=== PATIENT | male | born 1985 | race Asian ===

== ENCOUNTER 2016-06-16 11:46 | Emergency (ER) | payer MEDICAID ==
[2016-06-16] MEDS ORDERED: ONDANSETRON 4 MG/2 ML VIAL IVP STA (12:20)
[2016-06-16] MEDS ORDERED: KETOROLAC 60 MG/2 ML VIAL IVP STA (12:20)
[2016-06-16] MEDS ORDERED: SODIUM CHLORIDE 0.9% 1,000 ML IV ONE ×2 (12:20→14:08)
[2016-06-16] MEDS ORDERED: KETOROLAC 30 MG/ML VIAL ONE (12:26)
[2016-06-16] MEDS ORDERED: ONDANSETRON 4 MG/2 ML VIAL ONE (12:26)
[2016-06-16] MEDS ORDERED: HYDROmorphone 1 MG/ML SYRINGE IVP STA ×2 (12:47→14:06)
[2016-06-16] MEDS ORDERED: HYDROmorphone 1 MG/ML SYRINGE ONE ×2 (12:48→14:11)
== END 2016-06-16 15:17 | disposition home or self-care (01) ==
DX: N13.2 Hydronephrosis with renal and ureteral calculous obstruction (principal); Z87.442 Personal history of urinary calculi; K57.30 Diverticulosis of large intestine without perforation or abscess without bleeding; K76.0 Fatty (change of) liver, not elsewhere classified; I10 Essential (primary) hypertension; E78.00 Pure hypercholesterolemia, unspecified; F17.200 Nicotine dependence, unspecified, uncomplicated
CPT/HCPCS: 36415; 74176; 80053; 81001; 83690; 85025; 96361; 96374; 96375; 96376; 99284; 99285; J1170

== ENCOUNTER 2018-05-14 14:11 | Emergency (ER) | payer MEDICAID ==
[2018-05-14 14:39] LABS: BILIRUBIN,URINE NEGATIVE (NEGATIVE); GLUCOSE, URINE (UA) NEGATIVE (NEGATIVE); KETONES,URINE (UA) NEGATIVE (NEGATIVE); LEUKOCYTE ESTERASE, URINE NEGATIVE (NEGATIVE); NITRITE,URINE NEGATIVE (NEGATIVE); OCCULT BLOOD,URINE TRACE-INTA (NEGATIVE); PROTEIN,URINE 30 mg/dL (NEGATIVE); UROBILINOGEN,URINE 0.2 (NORMAL) E.U./dL (NORMAL)
[2018-05-14 14:47] LABS: BACTERIA,URINE None Seen /HPF (None Seen); CLARITY,URINE CLEAR (CLEAR); RBC,URINE 0-5 /HPF (0-5); SQUAMOUS EPITHELIAL CELL,UR RARE Squamous (<= Few)
[2018-05-14 14:48] LABS: MUCUS,URINE Few Strands
[2018-05-14 15:10] LABS: BASOPHILS # (AUTO) 0.1 10^3/uL (0.0-0.1); BASOPHILS % (AUTO) 0.6 %; EOSINOPHILS # (AUTO) 0.1 10^3/uL (0.0-0.7); EOSINOPHILS % (AUTO) 0.5 %; LYMPHOCYTES % (AUTO) 6.3 %; MEAN CORPUSCULAR HEMOGLOBIN 27.8 pg (27.0-31.0); MEAN CORPUSCULAR HGB CONC 34.6 g/dL (32.0-36.0); MEAN CORPUSCULAR VOLUME 80.2 fL (80.0-94.0); MEAN PLATELET VOLUME 7.2 fL (7.4-11.4); MONOCYTES # (AUTO) 0.9 10^3/uL (0.0-1.0); MONOCYTES % (AUTO) 5.6 %; NEUTROPHILS # (AUTO) 14.4 10^3/uL (1.5-6.6); PLT - PLATELET COUNT 278 10^3/uL (130-450); RED BLOOD COUNT 5.77 10^6/uL (4.70-6.10); RED CELL DISTRIBUTION WIDTH 14.1 % (12.0-15.0); WHITE BLOOD COUNT 16.5 x10^3/uL (4.8-10.8)
[2018-05-14 15:21] LABS: ALBUMIN 4.6 g/dL (3.2-5.5); ALBUMIN/GLOBULIN RATIO 1.2 (1.0-2.2); BILIRUBIN,TOTAL 0.7 mg/dL (0.2-1.0); CALCIUM 9.7 mg/dL (8.5-10.3); CREATININE 1.2 mg/dL (0.6-1.2); TOTAL PROTEIN 8.4 g/dL (6.7-8.2)
[2018-05-14] MEDS ORDERED: KETOROLAC 30 MG/ML VIAL IVP STA (15:32)
[2018-05-14] MEDS ORDERED: HYDROmorphone 1 MG/ML CARPUJECT IVP STA ×2 (15:32→16:38)
[2018-05-14] MEDS ORDERED: ONDANSETRON 4 MG/2 ML VIAL IVP STA (15:32)
--- NOTE | 2018-05-14 15:47 | ED Physician Documentation ---
PD HPI ABD PAIN - Stated complaint Stated Complaint: SIDE PX - Chief complaint Chief Complaint: Abd Pain - History obtained from History obtained from: Patient - History of Present Illness Timing - onset: Other (3 days increasing L low back pain rad to belly similar to prior renal colic. Has had ESWL x2 and last stone passed on it's own.) Review of Systems Ten Systems: 10 systems reviewed and negative Constitutional: denies: Fever, Chills Cardiac: denies: Chest pain / pressure, Palpitations Respiratory: denies: Dyspnea, Cough GI: reports: Abdominal Pain, Nausea, Vomiting. denies: Constipation, Diarrhea : reports: Hematuria PD PAST MEDICAL HISTORY - Past Medical History Cardiovascular: Hypertension, High cholesterol Respiratory: None Endocrine/Autoimmune: None GI: None : None, Kidney stones HEENT: None Psych: None Musculoskeletal: None Derm: None - Past Surgical History Past Surgical History: No - Present Medications Home Medications: Ambulatory Orders Medication Instructions Recorded Confirmed Ibuprofen [Motrin] 800 mg PO Q8H PRN #30 tablet 05/14/18 Oxycodone HCl/Acetaminophen 1 - 2 each PO Q6H PRN #20 tablet 05/14/18 [Percocet 5-325 mg Tablet] Tamsulosin [Flomax] 0.4 mg PO DAILY #14 capsule 05/14/18 - Allergies Allergies/Adverse Reactions: Allergies Allergy/AdvReac Type Severity Reaction Status Date / Time No Known Drug Allergies Allergy Verified 05/14/18 14:15 - Social History Does the pt smoke?: Yes Smoking Status: Current every day smoker Does the pt drink ETOH?: No Does the pt have substance abuse?: No - Immunizations Immunizations are current?: No Immunizations: No immun - POLST Patient has POLST: No PD ED PE NORMAL - Vitals Vital signs reviewed: Yes (HTN) - General General: Alert and oriented X 3, Other (pacing uncomfortable) - HEENT HEENT: PERRL, EOMI - Neck Neck: Supple, no meningeal sign, No bony TTP - Cardiac Cardiac: RRR, No murmur - Respiratory Respiratory: No respiratory distress, Clear bilaterally - Abdomen Abdomen: Normal bowel sounds, Soft, Non tender - Back Back: No CVA TTP, No spinal TTP - Derm Derm: Normal color, Warm and dry - Neuro Neuro: Alert and oriented X 3, Normal speech - Psych Psych: Normal mood, Normal affect Results - Vitals Vitals: Vital Signs - 24 hr 05/14/18 05/14/18 14:13 16:06 Temperature 36 C L 36.5 C Heart Rate 73 72 Respiratory 22 16 Rate Blood Pressure 205/117 H 165/98 H O2 Saturation 99 98 Oxygen O2 Source Room air - Labs Labs: Laboratory Tests 05/14/18 05/14/18 05/14/18 14:20 15:00 15:00 WBC 16.5 H RBC 5.77 Hgb 16.0 Hct 46.3 MCV 80.2 MCH 27.8 MCHC 34.6 RDW 14.1 Plt Count 278 MPV 7.2 L Neut # (Auto) 14.4 H Lymph # (Auto) 1.0 L [place] # (Auto) 0.9 Eos # (Auto) 0.1 Baso # (Auto) 0.1 Absolute Nucleated RBC 0.01 Nucleated RBC % 0.1 Sodium 138 Potassium 3.7 Chloride 105 Carbon Dioxide 23 Anion Gap 10.0 BUN 15 Creatinine 1.2 Estimated GFR (MDRD) 70 L Glucose 132 H Calcium 9.7 Total Bilirubin 0.7 AST 30 ALT 27 Alkaline Phosphatase 72 Total Protein 8.4 H Albumin 4.6 Globulin 3.8 Albumin/Globulin Ratio 1.2 Lipase 87 H Urine Color YELLOW Urine Clarity CLEAR Urine pH 7.0 Ur Specific [place] 1.020 Urine Protein 30 H Urine Glucose (UA) NEGATIVE Urine Ketones NEGATIVE Urine Occult Blood TRACE-INTA Urine Nitrite NEGATIVE Urine Bilirubin NEGATIVE Urine Urobilinogen 0.2 (NORMAL) Ur Leukocyte Esterase NEGATIVE Urine RBC 0-5 Urine WBC 0-3 Ur Squamous Epith Cells RARE Squamous Urine Bacteria None Seen Urine Mucus Few Strands Ur Microscopic Review INDICATED Urine Culture Comments NOT INDICATED PD MEDICAL DECISION MAKING - ED course ED course: 32-year-old gentleman with recurrent renal colic. Pain improved to 0 stepwise with medications and felt better. We discussed his CT, but given the clear diagnosis and improvement with pain meds He decided to forego it with hopes that it will pass on its own. Departure - Departure Disposition: 01 Home, Self Care Clinical Impression: Renal colic Condition: Good Record reviewed to determine appropriate education?: Yes Instructions: ED Stone Renal W Colic Prescriptions: Ibuprofen [Motrin] 800 mg PO Q8H PRN #30 tablet PRN Reason: PAIN &/OR FEVER Oxycodone HCl/Acetaminophen [Percocet 5-325 mg Tablet] 1 - 2 each PO Q6H PRN #20 tablet PRN Reason: pain Tamsulosin [Flomax] 0.4 mg PO DAILY #14 capsule Comments: Call your doctor to arrange a follow-up appointment, make the next available appointment. In the interim, return anytime if worse or if new symptoms develop. Do not drink or drive while taking narcotic pain medication. Note that many narcotic pain relievers also contain Tylenol/acetaminophen. Please ensure that your total dose of acetaminophen from all sources does not exceed 3 g (3000 mg) per day. You may get constipated while on this medication. Take a stool softener such as Colace twice a day while you are on it. Also add an uhbx-hlu-rzcchzm laxative such as senna or MiraLAX on any day that you do not have a bowel movement. If you received a narcotic pain medication or sedative while in the emergency department, do not drive for the next 24 hours. Your blood pressure was elevated today on check into the emergency department. This does not mean that you have hypertension, it is a common phenomenon to come to the emergency department and have elevated blood pressure. I recommend that you see your primary care physician within the week to have it rechecked when you are feeling better.
[2018-05-14 16:07] VITALS: BP 165/98
[2018-05-14] MEDS ORDERED: SODIUM CHLORIDE 0.9% 1,000 ML IV ONE (16:29)
== END 2018-05-14 18:12 | disposition home or self-care (01) ==
LOC: ED 14:11
DX: N23 Unspecified renal colic (principal); I10 Essential (primary) hypertension; E78.00 Pure hypercholesterolemia, unspecified; F17.200 Nicotine dependence, unspecified, uncomplicated
CPT/HCPCS: 36415; 80053; 81001; 83690; 85025; 96361; 96374; 96375; 99283; J1170; 81003; 87086

== ENCOUNTER 2022-05-02 17:42 | Emergency (ER) | payer MEDICAID ==
[2022-05-02] MEDS ORDERED: HYDROcod/ACETAM 5/325 MG TABLET PO STA (18:10)
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
--- NOTE | 2022-05-02 19:16 | XRAY Report ---
PROCEDURE: Chest 2 View X-Ray INDICATIONS: chest wall injury TECHNIQUE: 2 views of the chest were acquired. COMPARISON: None FINDINGS: Surgical changes and devices: None. Lungs and pleura: No pleural effusions or pneumothorax. Lungs are clear. Mediastinum: Mediastinal contours are normal. Heart size is normal. Bones and chest wall: No suspicious bony abnormalities. Soft tissues appear unremarkable. No eviden ce for acute compression fractures of the imaged spine. IMPRESSION: Chest without acute cardiopulmonary abnormalities or focal airspace disease. Reviewed by: Paolo Garcia MD on 05/02/2022 7:15 PM PST Approved by: Paolo Garcia MD on 05/02/2022 7:15 PM PST Station ID: [id number]
[2022-05-02 19:41] VITALS: BP 154/120
== END 2022-05-02 19:41 | disposition home or self-care (01) ==
LOC: ED 17:42
DX: S29.011A Strain of muscle and tendon of front wall of thorax, initial encounter (principal); V89.2XXA Person injured in unspecified motor-vehicle accident, traffic, initial encounter; Y93.89 Activity, other specified; Y92.410 Unspecified street and highway as the place of occurrence of the external cause; F17.200 Nicotine dependence, unspecified, uncomplicated
CPT/HCPCS: 71046; 99283; A9270

== ENCOUNTER 2022-05-04 05:24 | Emergency (ER) | payer MEDICAID ==
[2022-05-04] MEDS ORDERED: SODIUM CHLORIDE 0.9% 1,000 ML IV STA (05:40)
[2022-05-04] MEDS ORDERED: HYDROmorphone 1 MG/ML CARPUJECT IVP STA ×2 (05:46→07:15)
[2022-05-04] MEDS ORDERED: ONDANSETRON 4 MG/2 ML VIAL IVP STA (05:46)
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
[2022-05-04 05:49] LABS: BASOPHILS # (AUTO) 0.1 10^3/uL (0.0-0.1); BASOPHILS % (AUTO) 0.6 %; EOSINOPHILS # (AUTO) 0.2 10^3/uL (0.0-0.7); HCT - HEMATOCRIT 46.1 % (42.0-52.0); HGB - HEMOGLOBIN 14.1 g/dL (14.0-18.0); LYMPHOCYTES # (AUTO) 1.7 10^3/uL (1.5-3.5); LYMPHOCYTES % (AUTO) 15.2 %; MEAN CORPUSCULAR HEMOGLOBIN 24.4 pg (27.0-31.0); MEAN CORPUSCULAR HGB CONC 30.6 g/dL (32.0-36.0); MEAN CORPUSCULAR VOLUME 79.6 fL (80.0-94.0); MEAN PLATELET VOLUME 9.1 fL (7.4-11.4); MONOCYTES # (AUTO) 1.2 10^3/uL (0.0-1.0); MONOCYTES % (AUTO) 10.8 %; PLT - PLATELET COUNT 316 10^3/uL (130-450); RED BLOOD COUNT 5.79 10^6/uL (4.70-6.10); RED CELL DISTRIBUTION WIDTH 17.4 % (12.0-15.0); WHITE BLOOD COUNT 11.3 x10^3/uL (4.8-10.8)
[2022-05-04 05:54] LABS: ALBUMIN 3.4 g/dL (3.2-5.5); ALBUMIN/GLOBULIN RATIO 1.1 (1.0-2.2); BILIRUBIN,TOTAL 0.9 mg/dL (0.2-1.0); CALCIUM 8.8 mg/dL (8.5-10.3); CREATININE 2.5 mg/dL (0.6-1.2); POTASSIUM 4.2 mmol/L (3.5-5.0); TOTAL PROTEIN 6.6 g/dL (6.7-8.2)
[2022-05-04 06:03] LABS: BILIRUBIN,URINE NEGATIVE (NEGATIVE); GLUCOSE, URINE (UA) NEGATIVE (NEGATIVE); KETONES,URINE (UA) NEGATIVE (NEGATIVE); LEUKOCYTE ESTERASE, URINE NEGATIVE (NEGATIVE); NITRITE,URINE NEGATIVE (NEGATIVE); OCCULT BLOOD,URINE LARGE (NEGATIVE); PROTEIN,URINE 100 mg/dL (NEGATIVE); UROBILINOGEN,URINE 0.2 (NORMAL) E.U./dL (NORMAL)
[2022-05-04 06:12] LABS: CLARITY,URINE HAZY (CLEAR)
[2022-05-04 06:13] LABS: BACTERIA,URINE None Seen /HPF (None Seen); RBC,URINE TNTC /HPF (0-5); SQUAMOUS EPITHELIAL CELL,UR RARE Squamous (<= Few); WBC,URINE 0-3 /HPF (0-3)
[2022-05-04] MEDS ORDERED: TAMSULOSIN 0.4 MG CAPSULE PO STA (07:15)
[2022-05-04 08:11] VITALS: BP 192/150
--- NOTE | 2022-05-04 09:36 | CT Report ---
PROCEDURE: ABDOMEN/PELVIS WO INDICATIONS: right flank pain TECHNIQUE: Noncontrast 5 mm thick sections acquired from the diaphragms to the symphysis. 5 mm coronal and sagi ttal reformats were then performed. For radiation dose reduction, the following was used: automated exposure control, adjustment of mA and/or kV according to patient size. COMPARISON: 06/16/2016, 06/19/2014, 01/24/2014. Correlation is also made with chest radiograph, 3. FINDINGS: Image quality: This study is limited by body habitus. ABDOMEN: Lung bases: Within the left lower lobe, poorly defined opacity is seen, as on series 4 image 28. Hear t size is normal. A small hiatal hernia is incidentally noted. Solid organs: The previously seen fatty liver infiltration is no longer definitely seen. There is an enlarged caudate lobe of the liver. Gallbladder demonstrates no significant CT abnormality. Pancrea s is normal in contours. No adrenal nodules. Mild to moderate right-sided hydroureter and hydronephrosis can be seen. Mild right-sided perinephric fat stranding can be seen. At the left ureterovesicular junction, there are 2 stones seen. One is se en proximally on series 3 image 143 measuring approximately 2 mm. A second more distal stone is seen partially within the bladder lumen on series 3 image 145 measuring 3 mm. An irregular 6 mm stone can be seen within the right kidney that measures 150 Hounsfield units. No de finite left-sided stones are seen. No left-sided hydronephrosis. Peritoneum and bowel: Unenhanced bowel loops demonstrate normal wall thickness and caliber. No free fluid or air. Diverticulosis can be seen, without dee findings of active diverticulitis. Nodes and vessels: No retroperitoneal or mesenteric adenopathy by size criteria. Aorta and inferior vena cava are normal in caliber. Miscellaneous: No ventral hernias. Generalized body wall edema can be seen. PELVIS: Genitourinary: Bladder wall thickness is normal. Miscellaneous: No inguinal hernias or adenopathy. Bones: No suspicious bony lesions. No vertebral body compression fractures. Generalized premature degenerative changes are seen. IMPRESSION: 2 obstructing stones are seen near the right ureterovesicular junction, with the largest seen more di stally measuring 3 mm. Associated mild to moderate right-sided hydroureter and hydronephrosis can be seen. Nonobstructing right-sided kidney stone noted. Left lower lobe poorly defined consolidation can be seen. Mild infiltrate is suspected, although diff erential diagnosis includes atelectasis. In a patient of this age, neoplasm is unlikely. Please consi jada a follow-up chest CT in approximately 3 months to ensure clearing. Mild anasarca. Enlarged caudate lobe of the liver. Please consider cirrhosis. The previously seen fatty liver infilt ration is no longer definitely seen. Additional findings: Small hiatal hernia Diverticulosis, without findings of active diverticulitis. Note: No significant discrepancy from the preliminary report. Reviewed by: Kemar Alvarenga MD on 05/04/2022 8:35 AM [facility] Approved by: Kemar Alvarenga MD on 05/04/2022 8:35 AM [facility] Station ID: [id number]
== END 2022-05-04 08:11 | disposition home or self-care (01) ==
LOC: ED 05:24
DX: N13.2 Hydronephrosis with renal and ureteral calculous obstruction (principal); R93.2 Abnormal findings on diagnostic imaging of liver and biliary tract; F17.200 Nicotine dependence, unspecified, uncomplicated
CPT/HCPCS: 36415; 74176; 80053; 81001; 83690; 85025; 96374; 96376; 99284; A9270; J1170; 81003; 87086

== ENCOUNTER 2022-06-03 11:24 | Outpatient (CLI) | payer MEDICAID ==
[2022-06-03 11:54] LABS: BASOPHILS # (AUTO) 0.1 10^3/uL (0.0-0.1); EOSINOPHILS % (AUTO) 8.2 %; HCT - HEMATOCRIT 46.8 % (42.0-52.0); HGB - HEMOGLOBIN 14.1 g/dL (14.0-18.0); LYMPHOCYTES # (AUTO) 1.7 10^3/uL (1.5-3.5); LYMPHOCYTES % (AUTO) 14.3 %; MEAN CORPUSCULAR HGB CONC 30.1 g/dL (32.0-36.0); MEAN CORPUSCULAR VOLUME 79.7 fL (80.0-94.0); MEAN PLATELET VOLUME 8.4 fL (7.4-11.4); MONOCYTES # (AUTO) 0.9 10^3/uL (0.0-1.0); MONOCYTES % (AUTO) 7.6 %; NEUTROPHILS # (AUTO) 7.9 10^3/uL (1.5-6.6); NEUTROPHILS % (AUTO) 68.6 %; PLT - PLATELET COUNT 307 10^3/uL (130-450); RED BLOOD COUNT 5.87 10^6/uL (4.70-6.10); WHITE BLOOD COUNT 11.6 x10^3/uL (4.8-10.8)
[2022-06-03 12:02] LABS: ALBUMIN 3.7 g/dL (3.2-5.5); ALBUMIN/GLOBULIN RATIO 0.7 (1.0-2.2); BILIRUBIN,TOTAL 0.8 mg/dL (0.2-1.0); CALCIUM 9.4 mg/dL (8.5-10.3); CREATININE 2.2 mg/dL (0.6-1.2); POTASSIUM 4.2 mmol/L (3.5-5.0); TOTAL PROTEIN 8.8 g/dL (6.7-8.2); URIC ACID 11.8 mg/dL (2.6-7.2)
--- NOTE | 2022-06-03 15:46 | XRAY Report ---
PROCEDURE: Ankle 3 View BILAT INDICATIONS: ANKLE PAIN TECHNIQUE: 3 views of both ankles COMPARISON: None FINDINGS: Bones: No acute fracture or dislocation identified. No definite or substantial left ankle mortise asy mmetry. Probable medial talar tilt of the right ankle. Moderate-severe degenerative changes of the ti biotalar joint and imaged midfoot bilaterally. Prominent posterior calcaneal spurs present bilaterall y. Soft tissues: No tibiotalar joint effusion. IMPRESSION: No acute osseous abnormality. Probable medial talar tilt right ankle. Moderate-severe degenerative changes of the tibiotalar joint bilaterally. If symptoms persist, follow-up radiographs and/or CT or MRI may be helpful for further evaluation. Reviewed by: All Gillespie MD on 06/03/2022 3:45 PM [facility] Approved by: All Gillespie MD on 06/03/2022 3:45 PM [facility] Station ID: [id number]
== END 2022-06-03 11:25 | disposition home or self-care (01) ==
LOC: DI 11:24
PROVIDERS: ATTEND Physician Assistant
DX: M19.071 Primary osteoarthritis, right ankle and foot (principal); M19.072 Primary osteoarthritis, left ankle and foot; I11.0 Hypertensive heart disease with heart failure; I50.20 Unspecified systolic (congestive) heart failure; Z86.39 Personal history of other endocrine, nutritional and metabolic disease
CPT/HCPCS: 36415; 80053; 84550; 85025

== ENCOUNTER 2022-06-24 09:33 | Outpatient (CLI) | payer MEDICAID ==
[2022-06-24 10:13] LABS: ESTIMATED AVERAGE GLUCOSE 183 mg/dL (70-100)
== END 2022-06-24 09:34 | disposition home or self-care (01) ==
LOC: LAB 09:33
PROVIDERS: ATTEND Physician Assistant Surgical
DX: M14.60 Charcot's joint, unspecified site (principal)
CPT/HCPCS: 36415; 83036

== ENCOUNTER 2022-07-11 13:05 | Outpatient (CLI) | payer MEDICAID ==
--- NOTE | 2022-07-11 18:50 | CT Report ---
PROCEDURE: LOWER EXTREMITY WO - RT INDICATIONS: CHARCOTS ARTHROPATHY TECHNIQUE: Noncontrast 3-mm axial sections acquired from the distal tibial shaft to the talar dome, with coronal and sagittal reformats. For radiation dose reduction, the following was used: automated exposure c ontrol, adjustment of mA and/or kV according to patient size. COMPARISON: Ankle radiograph dated 06/03/2022. FINDINGS: Image quality: Excellent. Bones: Moderate osteoarthritic changes are noted throughout midfoot and hindfoot joints advanced for patient's age. Finding is most notably in subtalar joint, talonavicular joint and tibiotalar joint w ith significant joint space narrowing, subchondral sclerosis and marginal osteophyte formation. Likel y intraosseous hemangioma or lipoma is seen in weightbearing portion of calcaneus. Ill-defined hypode nse area involving midportion of talus is seen and may represent intraosseous hemangioma. No other woodson spicious bony lesion is noted. No acute fracture or dislocation. No significant osteoarthritic change s are noted in forefoot joints. Well-defined plantar and dorsal calcaneal enthesophytes are seen. Soft tissues: There is widening of the medial and lateral ankle mortise. Widening of distal tibiofib ular syndesmosis is also seen measures up to 4 mm in width. No significant tibiotalar or subtalar cosme nt effusion is seen, no gross intra-articular loose bodies are noted. Distal Achilles tendon is thick ened at its posterior calcaneal insertion suggestive of tendinosis. No Achilles tendon rupture. No fu ll-thickness extensor, flexor, and peroneus tendon ruptures. Visualized plantar fascia is within norm al limits. Impression: 1. Moderate midfoot and hindfoot joint osteoarthritic changes are advanced for patient's age concerni ng for posttraumatic changes versus sequela from neuropathic arthropathy. 2. No acute fracture or dislocation. Fairly well defined intraosseous hypodense lesions involving jatinder seth and central portion of talus and anterior to mid weightbearing portion of calcaneus and may repre sent intraosseous hemangioma or lipoma suggest clinical correlation and follow-up. 3. Widened distal tibiofibular syndesmosis concerning for distal syndesmotic injury. No significant joint effusion or intra-articular loose bodies. No abnormal soft tissue calcifications. No gross full -thickness ankle tendon rupture. Distal Achilles tendinosis at its posterior calcaneal insertion. No Achilles tendon rupture. Reviewed by: Josh Muñoz MD on 07/11/2022 5:49 PM [facility] Approved by: Josh Muñoz MD on 07/11/2022 5:49 PM [facility] Station ID: [id number]
== END 2022-07-11 13:06 | disposition home or self-care (01) ==
LOC: DI 13:05
PROVIDERS: ATTEND Physician Assistant Surgical
DX: M19.071 Primary osteoarthritis, right ankle and foot (principal); M14.60 Charcot's joint, unspecified site

== ENCOUNTER 2022-07-17 11:38 | Outpatient (CLI) | payer MEDICAID ==
[2022-07-17 12:01] LABS: CALCIUM 9.2 mg/dL (8.5-10.3); CREATININE 1.9 mg/dL (0.6-1.2); POTASSIUM 4.1 mmol/L (3.5-5.0)
== END 2022-07-17 11:39 | disposition home or self-care (01) ==
LOC: LAB 11:38
PROVIDERS: ATTEND Nurse Practitioner
DX: I10 Essential (primary) hypertension (principal)
CPT/HCPCS: 36415; 80048

== ENCOUNTER 2022-08-14 09:31 | Outpatient (CLI) | payer MEDICAID ==
[2022-08-14 10:12] VITALS: BP 156/102
--- NOTE | 2022-08-14 10:12 | SLEEP CARE CONSULTATION ---
Information from patient questionnaire entered by Dominique Ratliff. I have reviewed and concur with the information entered by Dominique Ratliff. This document represents the service I personally performed and the decisions made by me, Destinee Howard ARNP. History of Present Illness Service Date and Time: 08/14/2022930 Reason for Visit: New patient Chief Complaint: reports: Snoring, Observed pauses in breathing Date of Onset: no idea of time Usual bedtime: 1130 PM-MIDNIGHT Time it takes to fall asleep: 30-45 minutes Snores at night: Yes Observed to quit breathing while asleep: Yes Sleeps alone due to snoring: No Number of times waking at night: 1 Reasons for waking at night: reports: Bathroom. denies: Choking, Snoring, Gasping for air Toss, Turn, or Twitch while sleeping: Yes Recalls having dreams: No Usually gets out of bed at: 0830 Feels refreshed in the morning: Yes Morning headache: No Sleepy or fatigued during the day: No Ever fallen asleep while driving: Yes (once, Scott feel asleep at wheel, just prior to [place]) Takes day naps: No Dreams during day naps: No Prior sleep studies: No Additional HPI information: I had the pleasure of seeing KAMI FORBES today regarding the possibility of him having a sleep disorder. His current complaints are snoring and observed pauses in breathing. He states he had a heart attack and when he was in the hospital the doctor told him he may need a "breathing machine" at night. The doctor told him he was not getting enough air into his lungs and his oxygen level would drop when they were monitoring him. He continues to wear oxygen at night. He is not sure how many liters he is on. He states he used to stop breathing when he was much heavier. He states he lost weight but then put a lot back on before his heart attack. He has been told that he snores. 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 Patient is and lives in [place]. Have you smoked in the past 12 months: Yes Cigarettes per day (20/pack): 10 Years of smokin Quit date: Apr 2022 Smoking Pack Years: 5.0 Alcohol use: No Caffeine use: No Family History Family history of sleep disordered breathing: No Allergies and Home Medications Known drug allergies: No Drug allergies reviewed: Yes Home medication list reviewed: Yes (see updated list in EMR) Allergy and home medication list: Allergies No Known Drug Allergies Allergy (Verified 08/13/22 14:12) Review of Systems Weight loss over past 5 years: 75 lbs since heart attack (water weight) Cardiovascular: reports: high blood pressure, leg or foot swelling Gastrointestinal: denies: heartburn Neurological: denies: headaches, seizure Psychiatric: denies: anxiety, depression, mood disorder Ear/Nose/Throat: denies: tonsillectomy Endocrine: denies: thyroid disease Immunologic: reports: other (SWELLING IN ANKLES) Physical Exam Vital signs obtained and entered by: DOMINIQUE Oviedo MA Blood Pressure: 156/102 (LEFT ARM) Cuff size: long Heart Rate: 85 O2 Saturation: 96 Height: 5 ft 10 in Weight: 277 lb 3.2 oz Body Mass Index: 39.7 BMI Classification: Obese Neck circumference: 20.5 Mouth and throat: narrow oropharynx Soft palate: long Hard palate: normal Uvula: normal Uvula visualization: 0% Mallampati Class IV Tongue: enlarged in size with teeth bach on lateral edges Tonsils: 2+ Neck: normal w/o lymphadenopathy or thyromegaly Heart: regular rate and rhythm Lungs: clear bilaterally Impression and Plan 1. Suspected Obstructive Sleep Apnea-Hypopnea Syndrome, as suggested by a history of loud and irregular snoring and observed cessation of breath while asleep. Narrow oropharynx and obesity are common predisposing factors for obstructive sleep apnea-hypopnea syndrome. I recommend proceeding to polysomnography to confirm the diagnosis and to assess severity. If the patient has significant sleep disordered breathing, a manual CPAP titration study will also be performed to find the optimal treatment pressure. I informed the patient of what the sleep studies involve and after some discussion, obtained agreement to proceed. The pathophysiology of obstructive sleep apnea-hypopnea syndrome was discussed with the patient and health risks of cardiovascular and cerebrovascular disease if not treated. Risks of drowsy driving discussed in detail and patient advised to avoid long distance driving and to lathe puller at the first sign of drowsiness. Patient agreed to plan. * Schedule polysomnography +- manual CPAP titration study and return in 1-2 weeks after the study to discuss result and initiate therapy. * Avoid long distance driving or driving when feeling sleepy. * Avoid alcohol, sedative and muscle relaxant around bedtime. * Attempt to lose weight. * Review instructions provided by trained office staff on how to prepare for the sleep study. * Return for follow-up after sleep study completed. Counseling Topics: Weight loss health impact Visit Type: In Office Time Spent with Patient (minutes): 30 Provider Statement: I spent 100% of the Face to Face Visit with the patient with greater than 50% spent counseling the patient and coordination of care.
== END 2022-08-14 09:32 | disposition home or self-care (01) ==
LOC: SC 09:31
PROVIDERS: ATTEND Nurse Practitioner Family
DX: R06.83 Snoring (principal); R06.81 Apnea, not elsewhere classified; E66.9 Obesity, unspecified; Z68.39 Body mass index [BMI] 39.0-39.9, adult; Z87.891 Personal history of nicotine dependence
CPT/HCPCS: 99203; 99212

== ENCOUNTER 2022-08-30 20:44 | Outpatient (CLI) | payer MEDICAID | END 2022-08-30 20:45 | disposition home or self-care (01) | LOC: SC 20:44 | PROVIDERS: ATTEND Nurse Practitioner Family | DX: G47.33 Obstructive sleep apnea (adult) (pediatric) (principal); G47.61 Periodic limb movement disorder; E66.9 Obesity, unspecified; Z68.39 Body mass index [BMI] 39.0-39.9, adult | CPT/HCPCS: 95810 ==

== ENCOUNTER 2022-09-05 08:36 | Outpatient (CLI) | payer MEDICAID ==
--- NOTE | 2022-09-05 08:44 | Sleep Patient Instructions ---
Sleep Center Visit Summary - Patient Visit Information Reason for Visit: Sleep study follow up - Patient Instructions Instructions Attached: CPAP Dc, CPAP Additional Instructions: You are being started on CPAP therapy with pressure setting at 4-15 cmH2O. You will need to call the sleep care office to set up your follow up once you have your APAP machine and we will schedule a visit to check compliance and response to therapy at that time. You may call the office with any concerns about pressure feeling too low or too much for adjustment, if needed. You should contact DME for any questions or concerns about mask or equipment. Please follow up in the sleep care office one month after obtaining new device. - Clinic Information Contact: [facility] [address] [place] [email or web address] T: [phone]
--- NOTE | 2022-09-05 09:08 | SLEEP CARE CONSULTATION ---
Information from patient questionnaire entered by Dominique Ratliff. I have reviewed and concur with the information entered by Dominique Ratliff. This document represents the service I personally performed and the decisions made by me, Destinee Howard ARNP. History of Present Illness Service Date and Time: 09/05/2022 0836 Initial [place] Sleepiness Scale score: 7 (08/14/22) Current [place] Sleepiness Scale score: 7 () Additional HPI information: KAMI FORBES returns for follow up and results of the recently performed polysomnography. I explained the pathophysiology behind obstructive sleep apnea. We then spent quite a bit of time discussing different treatment options. For mild obstructive sleep apnea, surgery and oral appliance are alternatives to nasal CPAP therapy but in moderate or severe cases, nasal CPAP is the most effective and reliable treatment. I reviewed the impact of weight changes on sleep apnea and strongly recommended losing weight. After some discussion, the patient opted to go with the nasal CPAP therapy. Nasal autoCPAP set at 5-15 cmH20 will be ordered with rationale explained. A manual titration study will be ordered if unable to find optimal pressure with office adjustments. I explained how CPAP machine works and what to expect when using the machine. Using CPAP every night in order to get used to it was emphasized. Patient advised to put CPAP mask on before getting into bed so as not to fall asleep without CPAP. To assist acclimation to CPAP use, it could also be used for a short time during day while reading or watching TV. The patient was instructed to call the CPAP supplier to discuss any mechanical problem that may occur. If the mask given is uncomfortable or is difficult to keep on through the night even with adjustment, contact the CPAP supplier as many will replace with a nother mask style if notified before 30 days. If snoring or perceives is not getting enough air or too much air from the machine, notify this office. Patient does not drink alcohol. Patient was cautioned about risks of drowsy driving until sleepiness symptoms resolve. Patient denies drowsy driving. Sleep Study - Results Type of Sleep Study: Polysomnography (COMPLETED) Prior sleep studies: No Polysomnography/Home Sleep Study results: IMPRESSION: The quality of the study is good. The patient had reduced sleep efficiency frequent awakenings throughout the night. The sleep architecture was abnormal for sleep fragmentation and reduced amount of time spent in REM and slow wave sleep (N3). Respiratory monitoring showed severe obstructive sleep apnea-hypopnea (AHI = 49.1) associated with frequent arousals, oxyhemoglobin desaturation and mild hypoxia (juliet oxygen saturation of 87%). The patient slept almost exclusively in non-supine positions (supine AHI = 0.0; non-supine = 50.35). Snore was light to loud in intensity. There was mild periodic leg movement of sleep not contributing to the sleep fragmentation. Cardiac rhythm was normal sinus rhythm without significant arrhythmia. No abnormal behavior (parasomnia) observed during the night. Allergies and Home Medications Known drug allergies: No Drug allergies reviewed: Yes Home medication list reviewed: Yes (no changes) Allergy and home medication list: Allergies No Known Drug Allergies Allergy (Verified 09/04/22 15:40) Review of Systems Review of systems same as previous: Yes (no changes) Physical Exam Vital signs obtained and entered by: DOMINIQUE Oviedo MA Blood Pressure: 150/100 (LEFT ARM) Cuff size: long Heart Rate: 66 O2 Saturation: 96 Height: 5 ft 10 in Weight: 276 lb Body Mass Index: 39.6 BMI Classification: Obese Impression and Plan 1. Obstructive Sleep Apnea-Hypopnea Syndrome, severe, with lowest oxygen saturation of 87%. Obviously this is the cause of the patients symptoms of unrefreshed sleep, and excessive daytime sleepiness. Positive pressure therapy could benefit cardiac disease, borderline hypertension and borderline diabetes. As mentioned above, the patient will be started on nasal autoCPAP therapy with pressure set at 5-15 cmH2O. A manual titration study will be completed if unable to find optimal treatment pressure with office adjustments. Compliance guidelines also reviewed. A copy of compliance guidelines will be given for reference at check out. 2. Periodic limb movement, mild, that did contribute to fragmentation of the patients sleep. Periodic limb movement of sleep (PLMS) is characterized by episodes of repetitive limb movements that occur during sleep and usually involve the lower limbs. The etiology is unknown. Caffeine can aggravate PLMS and should be avoided. Sleep hygiene methods can also improve sleep as well as lifestyle changes such as regular exercise. Patient was advised that no treatment is needed at this time. If symptoms increase, then further evaluation is indicated. 3. Elevated blood pressure in patient with hypertension. His pressure was measured at 150/100 this morning. He states he just took medications 30 minutes ago. He denies any chest pain, headaches or shortness of breath. * Nasal auto CPAP therapy, pressure at 4-15 cm H2O. * Patient on nocturnal oxygen 2L/NC, will be bled in thru CPAP * Attempt to lose weight. * Avoid alcohol consumption near bedtime. * Avoid supine sleep until using CPAP. * The patient is again cautioned about driving until sleepiness completely resolves. * Return one month after CPAP obtained. I will assess response to therapy and compliance at that time. Counseling Topics: Weight loss health impact Visit Type: In Office Time Spent with Patient (minutes): 22 Provider Statement: I spent 100% of the Face to Face Visit with the patient with greater than 50% spent counseling the patient and coordination of care.
[2022-09-05 09:09] VITALS: BP 150/100
== END 2022-09-05 08:37 | disposition home or self-care (01) ==
LOC: SC 08:36
PROVIDERS: ATTEND Nurse Practitioner Family
DX: G47.33 Obstructive sleep apnea (adult) (pediatric) (principal); G47.61 Periodic limb movement disorder; I10 Essential (primary) hypertension; E66.9 Obesity, unspecified; Z68.39 Body mass index [BMI] 39.0-39.9, adult
CPT/HCPCS: 99212; 99213

== ENCOUNTER 2022-09-23 13:07 | Outpatient (CLI) | payer SELFPAY ==
[2022-09-23 13:35] LABS: HCT - HEMATOCRIT 41.8 % (42.0-52.0); HGB - HEMOGLOBIN 13.4 g/dL (14.0-18.0)
[2022-09-23 14:04] LABS: CALCIUM 8.8 mg/dL (8.5-10.3); CREATININE 1.7 mg/dL (0.6-1.2); POTASSIUM 3.9 mmol/L (3.5-5.0)
[2022-09-23 14:50] LABS: CREATININE,URINE 182.5 mg/dL; MICROALBUM/CREATININE RATIO,UR 143.6 ug/mg (<30.0); MICROALBUMIN,URINE 26.2 mg/dL (0-300.0); PROTEIN/CREATININE RATIO,URINE 0.4 (<=0.2)
== END 2022-09-23 13:08 | disposition home or self-care (01) ==
LOC: LAB 13:07
PROVIDERS: ATTEND Internal Medicine Nephrology
DX: I12.9 Hypertensive chronic kidney disease with stage 1 through stage 4 chronic kidney disease, or unspecified chronic kidney disease (principal); E11.22 Type 2 diabetes mellitus with diabetic chronic kidney disease; N18.32 Chronic kidney disease, stage 3b; I99.9 Unspecified disorder of circulatory system
CPT/HCPCS: 36415; 80048; 82043; 82570; 84156; 85014; 85018

== ENCOUNTER 2022-10-15 14:07 | Outpatient (CLI) | payer MEDICAID ==
[2022-10-15 17:47] LABS: BASOPHILS # (AUTO) 0.1 10^3/uL (0.0-0.1); BASOPHILS % (AUTO) 0.6 %; EOSINOPHILS # (AUTO) 0.4 10^3/uL (0.0-0.7); EOSINOPHILS % (AUTO) 4.5 %; HCT - HEMATOCRIT 41.4 % (42.0-52.0); HGB - HEMOGLOBIN 13.3 g/dL (14.0-18.0); LYMPHOCYTES # (AUTO) 2.3 10^3/uL (1.5-3.5); LYMPHOCYTES % (AUTO) 24.1 %; MEAN CORPUSCULAR HEMOGLOBIN 25.3 pg (27.0-31.0); MEAN CORPUSCULAR HGB CONC 32.1 g/dL (32.0-36.0); MEAN CORPUSCULAR VOLUME 78.9 fL (80.0-94.0); MONOCYTES # (AUTO) 0.7 10^3/uL (0.0-1.0); MONOCYTES % (AUTO) 7.5 %; PLT - PLATELET COUNT 313 10^3/uL (130-450); RED BLOOD COUNT 5.25 10^6/uL (4.70-6.10); RED CELL DISTRIBUTION WIDTH 15.9 % (12.0-15.0); WHITE BLOOD COUNT 9.5 x10^3/uL (4.8-10.8)
[2022-10-15 18:22] LABS: CHOL/HDL RATIO 5.7 (<5.0); CHOLESTEROL 159 mg/dL; HDL CHOLESTEROL 28 mg/dL; TRIGLYCERIDES 532 mg/dL; URIC ACID 9.8 mg/dL (2.6-7.2)
[2022-10-15 18:44] LABS: LDL CHOLESTEROL,DIRECT 46 mg/dL; LDLD/HDL RATIO 1.6 (<3.6)
[2022-10-15 20:38] LABS: ESTIMATED AVERAGE GLUCOSE 131 mg/dL (70-100); HEMOGLOBIN A1c% 6.2 % (4.27-6.07)
== END 2022-10-15 14:08 | disposition home or self-care (01) ==
LOC: LAB.N 14:07
PROVIDERS: ATTEND Physician Assistant
DX: E11.9 Type 2 diabetes mellitus without complications (principal); Z87.39 Personal history of other diseases of the musculoskeletal system and connective tissue
CPT/HCPCS: 36415; 80061; 83036; 83721; 84550; 85025

== ENCOUNTER 2023-02-03 11:11 | Outpatient (CLI) | payer MEDICAID ==
[2023-02-03 19:34] LABS: HCT - HEMATOCRIT 44.5 % (42.0-52.0); HGB - HEMOGLOBIN 13.6 g/dL (14.0-18.0)
[2023-02-03 19:53] LABS: CALCIUM 9.7 mg/dL (8.5-10.3); CREATININE 1.9 mg/dL (0.6-1.3); POTASSIUM 3.1 mmol/L (3.5-4.5)
[2023-02-03 19:58] LABS: CREATININE,URINE 290.1 mg/dL; MICROALBUM/CREATININE RATIO,UR 36.5 ug/mg (<30.0); MICROALBUMIN,URINE 10.6 mg/dL; PROTEIN/CREATININE RATIO,URINE 0.1 (<=0.2)
== END 2023-02-03 11:12 | disposition home or self-care (01) ==
LOC: LAB.N 11:11
PROVIDERS: ATTEND Internal Medicine Nephrology
DX: I12.9 Hypertensive chronic kidney disease with stage 1 through stage 4 chronic kidney disease, or unspecified chronic kidney disease (principal); E11.22 Type 2 diabetes mellitus with diabetic chronic kidney disease; N18.32 Chronic kidney disease, stage 3b; I99.9 Unspecified disorder of circulatory system
CPT/HCPCS: 36415; 80048; 82043; 82570; 84156; 85014; 85018

== ENCOUNTER 2023-04-01 15:50 | Outpatient (CLI) | payer MEDICAID ==
--- NOTE | 2023-04-01 16:17 | SLEEP CARE CONSULTATION ---
Information from patient questionnaire entered by Robert Ratliff. I have reviewed and concur with the information entered by Robert Ratliff. This document represents the service I personally performed and the decisions made by , Destinee Howard ARNP. History of Present Illness Service Date and Time: 04/01/2023 1550 Previous diagnosis: Severe, Obstructive Sleep Apnea-Hypopnea Syndrome AHI: 49.1 (in 08/2022) Reason for follow up: other (F/U) Equipment type: CPAP (RESMED Airsense 10, s/u 09/2022) Equipment obtained from: [employer] ([employer]) Mask style: Nasal Mask brand: Resmed (AirFit [id number]) Backup mask available: Yes (full face mask) Last cushion change: 5 months Prior sleep studies: No Type of Sleep Study: Polysomnography (COMPLETED) HPI additional information: KAMI FORBES was diagnosed to have severe, AHI 49.1, obstructive sleep apnea- hypopnea syndrome and returned today for CPAP therapy first compliance follow- up. Sleep Study - Results Type of Sleep Study: Polysomnography (COMPLETED) Prior sleep studies: No CPAP Compliance Data - Data Reviewed with Patient Average duration of nightly device use: 1 hour 6 minutes Compliance rate %: 0 ( days used) Current pressure setting (cmH2O): 5-15 (median 6.2, avg 7.3, max 7.6) Average residual AHI: 0.2 Average large leak: 1.8 L/min Subjective Missed days of use due to: reports: mask issues (taking mask off during the night and not replacing) Patient concerns: reports: mask discomfort, nasal congestion. denies: aerophagia, air blowing in eyes, mask leak noise, condensation in mask/hose, dry mouth, nose, throat, epistaxis Observed to snore while using device: No Current pressure setting perceived as: comfortable On therapy, patient: reports: sleeping better, more rested overall. denies: drowsiness while driving Initial [place] Sleepiness Scale score: 7 (08/14/22) Current [place] Sleepiness Scale score: 8 (04/01/23) Allergies and Home Medications Known drug allergies: No Drug allergies reviewed: Yes Home medication list reviewed: Yes (no changes) Allergy and home medication list: Allergies No Known Drug Allergies Allergy (Verified 03/31/23 09:49) Review of Systems Review of systems same as previous: Yes (NO CHANGE) Physical Exam Vital signs obtained and entered by: ROBERT Oviedo MA Blood Pressure: 116/72 (LEFT ARM) Cuff size: long Heart Rate: 71 O2 Saturation: 99 Height: 5 ft 10 in Weight: 256 lb 9.6 oz Body Mass Index: 36.8 BMI Classification: Obese Impression and Plan 1. Obstructive Sleep Apnea-Hypopnea Syndrome, severe, with poor treatment compliance and good apnea control. On CPAP therapy, the patient has better sleep quality and is more rested overall. Patient has been having trouble with taking the mask off after he goes to sleep. He states he does not replace it when he wakes up and it is off. I advised him that he is not compliant with use of his CPAP and he voiced understanding. He thinks the mask just becomes uncomfortable after he falls asleep. Compliance guidelines reviewed for insurance coverage. Patient was counseled on the difference between meeting compliance and optimal use of CPAP. Optimal use of CPAP is use of CPAP with all sleep to obtain maximum benefit of treatment. Patient is encouraged to use CPAP with all sleep. We also discussed a letter from insurance denying a second trial. This is probably due to non-compliance. We will submit chart notes but I made him aware that he may need to do another sleep study to re-qualify for APAP trial. We will let him know. I will have him followup in 1-2 months or after sleep study if that is what we need to do. He voiced understanding. Patient's apnea severity and rationale for treatment to reduce apnea, improve sleep quality and reduce cardiovascular and cerebrovascular events was reviewed. I also reviewed the benefit of consistent device use of CPAP for borderline hypertension, cardiac disease and borderline diabetes. 2. Obesity, unspecified. Currently patients BMI is 36.8. Obesity increases the risk of apnea, CPAP pressure requirements and overall health risks especially cardiovascular and diabetes. Thus patient is advised to lose weight. * Continue auto CPAP pressure at 5-15 cmH2O * PSG if needed to re-qualify for CPAP * Notify me if snoring with mask or feeling that the pressure is too much or too little * Attempt to lose weight * Call this office if any problems using CPAP * Return for follow up in 1-2 months, or sooner if concerns arise Counseling Topics: Spare mask, Weight loss health impact Follow up with Sleep Care in: 1-2 months Visit Type: In Office Time Spent with Patient (minutes): 22 Provider Statement: I spent 100% of the Face to Face Visit with the patient with greater than 50% spent counseling the patient and coordination of care.
[2023-04-01 16:24] VITALS: BP 116/72; O2SAT 99
== END 2023-04-01 15:51 | disposition home or self-care (01) ==
LOC: SC 15:50
PROVIDERS: ATTEND Nurse Practitioner Family
DX: G47.33 Obstructive sleep apnea (adult) (pediatric) (principal); E66.9 Obesity, unspecified; Z68.36 Body mass index [BMI] 36.0-36.9, adult
CPT/HCPCS: 99212; 99213

== ENCOUNTER 2023-05-19 10:12 | Outpatient (CLI) | payer MEDICAID ==
[2023-05-19 12:27] LABS: BASOPHILS # (AUTO) 0.1 10^3/uL (0.0-0.1); BASOPHILS % (AUTO) 0.6 %; EOSINOPHILS # (AUTO) 0.4 10^3/uL (0.0-0.7); EOSINOPHILS % (AUTO) 3.9 %; HCT - HEMATOCRIT 49.4 % (42.0-52.0); HGB - HEMOGLOBIN 15.5 g/dL (14.0-18.0); LYMPHOCYTES # (AUTO) 1.7 10^3/uL (1.5-3.5); LYMPHOCYTES % (AUTO) 16.4 %; MEAN CORPUSCULAR HEMOGLOBIN 23.9 pg (27.0-31.0); MEAN CORPUSCULAR HGB CONC 31.4 g/dL (32.0-36.0); MEAN CORPUSCULAR VOLUME 76.2 fL (80.0-94.0); MONOCYTES # (AUTO) 0.9 10^3/uL (0.0-1.0); MONOCYTES % (AUTO) 8.9 %; NEUTROPHILS # (AUTO) 7.3 10^3/uL (1.5-6.6); NEUTROPHILS % (AUTO) 69.7 %; PLT - PLATELET COUNT 350 10^3/uL (130-450); RED BLOOD COUNT 6.48 10^6/uL (4.70-6.10); RED CELL DISTRIBUTION WIDTH 17.7 % (12.0-15.0); WHITE BLOOD COUNT 10.4 x10^3/uL (4.8-10.8)
[2023-05-19 12:46] LABS: ALBUMIN 4.4 g/dL (3.2-5.5); ALBUMIN/GLOBULIN RATIO 1.1 (1.0-2.2); ALKALINE PHOSPHATASE 75 IU/L (42-121); ALT ALANINE AMINOTRANSFERASE 29 IU/L (10-60); AST ASPARTATE AMINOTRANSFERASE 22 IU/L (10-42); BILIRUBIN,TOTAL 0.8 mg/dL (0.2-1.0); BUN - BLOOD UREA NITROGEN 27 mg/dL (6-20); CALCIUM 9.6 mg/dL (8.5-10.3); CARBON DIOXIDE - CO2 27 mmol/L (21-32); CHLORIDE 101 mmol/L (101-111); CHOL/HDL RATIO 4.6 (<5.0); CHOLESTEROL 175 mg/dL; CREATININE 1.8 mg/dL (0.6-1.3); GFR - MDRD 42 (>89); GLUCOSE 118 mg/dL (74-104); HDL CHOLESTEROL 38 mg/dL; LDL CHOLESTEROL,CALCULATED 57 mg/dL; LDL/HDL RATIO 1.5 (<3.6); POTASSIUM 3.3 mmol/L (3.5-4.5); SODIUM 138 mmol/L (135-145); TOTAL PROTEIN 8.5 g/dL (6.4-8.9); TRIGLYCERIDES 398 mg/dL (48-352); URIC ACID 13.5 mg/dL (4.4-7.6); VLDL CHOLESTEROL 80 mg/dL
[2023-05-19 12:59] LABS: CREATININE,URINE 139.8 mg/dL; PROTEIN/CREATININE RATIO,URINE 0.3 (<=0.2)
[2023-05-19 13:21] LABS: ESTIMATED AVERAGE GLUCOSE 137 mg/dL (70-100); HEMOGLOBIN A1c% 6.4 % (4.27-6.07)
[2023-05-19 13:26] LABS: CREATININE,URINE 139.3 mg/dL; MICROALBUM/CREATININE RATIO,UR 117.7 ug/mg (<30.0); MICROALBUMIN,URINE 16.4 mg/dL
== END 2023-05-19 10:13 | disposition home or self-care (01) ==
LOC: LAB.N 10:12
PROVIDERS: ATTEND Nurse Practitioner Family
DX: E11.22 Type 2 diabetes mellitus with diabetic chronic kidney disease (principal); N18.32 Chronic kidney disease, stage 3b; Z87.39 Personal history of other diseases of the musculoskeletal system and connective tissue
CPT/HCPCS: 36415; 80053; 80061; 82043; 82570; 83036; 83721; 84156; 84550; 85025

== ENCOUNTER 2023-08-07 16:27 | Outpatient (CLI) | payer MEDICAID ==
--- NOTE | 2023-08-07 16:45 | Sleep Patient Instructions ---
Sleep Center Visit Summary - Patient Visit Information Reason for Visit: 2 month follow up - Patient Instructions Additional Instructions: You were here for follow up of CPAP therapy. You will be continued on CPAP therapy with pressure at 5-8 cmH2O. You should follow up with sleep care in 1-2 months. You may contact us sooner for any questions or concerns. - Clinic Information Contact: [facility] [address] [place] [address] [email or web address] T: [phone]
--- NOTE | 2023-08-07 16:50 | SLEEP CARE CONSULTATION ---
Information from patient questionnaire entered by Robert Ratliff. I have reviewed and concur with the information entered by Robert Ratliff. This document represents the service I personally performed and the decisions made by , Destinee Howard ARNP. History of Present Illness Service Date and Time: 08/07/2023 162 Previous diagnosis: Severe, Obstructive Sleep Apnea-Hypopnea Syndrome AHI: 49.1 (in 08/2022) Reason for follow up: other (2 MONTH F/U) Equipment type: CPAP (RESMED Airsense 10, s/u 09/2022 MACHINE NEEDED) Equipment obtained from: [facility] (getting supplies) Mask style: Nasal Backup mask available: Yes Last cushion change: just changed it Prior sleep studies: No Type of Sleep Study: Polysomnography (COMPLETED) HPI additional information: KAMI FORBES was diagnosed to have severe, AHI 49.1, obstructive sleep apnea- hypopnea syndrome and returned today for CPAP therapy two month after pressure change follow-up. Sleep Study - Results Type of Sleep Study: Polysomnography (COMPLETED) Prior sleep studies: No CPAP Compliance Data - Data Reviewed with Patient Average duration of nightly device use: 1 hour 47 minutes Compliance rate %: 3 ( days used) Current pressure setting (cmH2O): 5-8 Average residual AHI: 0.1 Central apnea: 0 Obstructive apnea: 0 Average large leak: 4.5 L/min Subjective Missed days of use due to: reports: other (tube broke and unable to use machine) Patient concerns: denies: aerophagia, mask discomfort, air blowing in eyes, mask leak noise, condensation in mask/hose, nasal congestion, dry mouth, nose, throat, epistaxis Observed to snore while using device: Yes Current pressure setting perceived as: comfortable On therapy, patient: reports: sleeping better, awakening more refreshed, being more awake and alert during the day, more rested overall. denies: drowsiness while driving Initial [place] Sleepiness Scale score: 7 (08/14/22) Current [place] Sleepiness Scale score: 7 (08/07/23) Allergies and Home Medications Known drug allergies: No Drug allergies reviewed: Yes Home medication list reviewed: Yes (as listed) Allergy and home medication list: Allergies No Known Drug Allergies Allergy (Verified 08/05/23 11:29) Home Medications Medication Instructions Recorded Confirmed Last Taken Type HYDROcod/ACETAM 5/325 [[place] 5/325] 1 - 2 tab PO Q6H PRN #15 tablet 05/02/22 08/05/23 05/03/22 18:00 Rx Aspirin [Vazalore] See Rx Instructions .ROUTE .COMPLEX 08/14/22 08/05/23 Unknown History Atorvastatin [Lipitor] See Rx Instructions .ROUTE .COMPLEX 08/14/22 08/07/23 Unknown History Empagliflozin [Jardiance] See Rx Instructions .ROUTE .COMPLEX 08/14/22 08/07/23 Unknown History Furosemide [Lasix] See Rx Instructions .ROUTE .COMPLEX 08/14/22 08/07/23 Unknown History Isosorbide Mononitrate ER [Imdur] See Rx Instructions .ROUTE .COMPLEX 08/14/22 08/07/23 Unknown History carvediloL [Coreg] See Rx Instructions .ROUTE .COMPLEX 08/14/22 08/07/23 Unknown History allopurinoL [Allopurinol] See Rx Instructions .ROUTE .COMPLEX 08/07/23 08/07/23 Unknown History Review of Systems Review of systems same as previous: No (GOUT) Physical Exam Vital signs obtained and entered by: RBOERT Oviedo MA Blood Pressure: 136/83 (RIGHT ARM) Cuff size: long Heart Rate: 91 O2 Saturation: 98 Height: 5 ft 10 in Weight: 245 lb Weight change since last visit: 10 lb loss Body Mass Index: 35.2 BMI Classification: Obese Impression and Plan 1. Obstructive Sleep Apnea-Hypopnea Syndrome, severe, with poor treatment compliance and good apnea control. On CPAP therapy, the patient has better sleep quality and is more rested overall. He says that the hose on his mask broke and he had difficulty getting it replaced until this last week. He had issues with insurance not paying for it and had to get this all worked out to get his supplies. He has it now and is going to try to use his mask regularly as directed. He says all the changes with the humidity resolved the issues with his nasal dryness and now that is all working well for him. I will have him follow-up in 1 to 2 months to recheck his compliance. Patient's apnea severity and rationale for treatment to reduce apnea, improve sleep quality and reduce cardiovascular and cerebrovascular events was reviewed. I also reviewed the be nefit of consistent device use of CPAP for hypertension, cardiac disease, pre- diabetes. 2. Obesity, unspecified. Currently patients BMI is 35.2. Obesity increases the risk of apnea, CPAP pressure requirements and overall health risks especially cardiovascular and diabetes. Thus patient is advised to lose weight. * Continue auto CPAP pressure at 5-8 cmH2O * Notify me if snoring with mask or feeling that the pressure is too much or too little * Attempt to lose weight * Call this office if any problems using CPAP * Return for follow up in 1-2 months, or sooner if concerns arise Counseling Topics: Spare mask, Weight loss health impact Follow up with Sleep Care in: 1-2 months Visit Type: In Office Time Spent with Patient (minutes): 13 Provider Statement: I spent 100% of the Face to Face Visit with the patient with greater than 50% spent counseling the patient and coordination of care.
[2023-08-07 16:57] VITALS: BP 136/83; O2SAT 98
== END 2023-08-07 16:28 | disposition home or self-care (01) ==
LOC: SC 16:27
PROVIDERS: ATTEND Nurse Practitioner Family
DX: G47.33 Obstructive sleep apnea (adult) (pediatric) (principal); E66.9 Obesity, unspecified; Z68.35 Body mass index [BMI] 35.0-35.9, adult
CPT/HCPCS: 99212

== ENCOUNTER 2023-10-07 16:26 | Outpatient (CLI) | payer MEDICAID ==
--- NOTE | 2023-10-07 16:49 | Sleep Patient Instructions ---
Sleep Center Visit Summary - Patient Visit Information Reason for Visit: 2-month follow-up - Patient Instructions Additional Instructions: You were here for follow up of CPAP therapy. You will be continued on CPAP therapy with pressure at 5-8 cmH2O. You should follow up with sleep care in 1-2 months. You may contact us sooner for any questions or concerns. - Clinic Information Contact: [facility] [address] [place] [id number] [email or web address] T: [phone]
--- NOTE | 2023-10-07 16:57 | SLEEP CARE CONSULTATION ---
Information from patient questionnaire entered by Dominique Ratliff. I have reviewed and concur with the information entered by Dominique Ratliff. This document represents the service I personally performed and the decisions made by , Destinee Howard ARNP. History of Present Illness Service Date and Time: 10/07/2023 1626 Previous diagnosis: Severe, Obstructive Sleep Apnea-Hypopnea Syndrome AHI: 49.1 (in 08/2022) Reason for follow up: other (2 MONTH F/U) Equipment type: CPAP (RESMED Airsense 10, s/u 09/2022) Equipment obtained from: [employer] (getting supplies) Mask style: Nasal Backup mask available: Yes Prior sleep studies: No Type of Sleep Study: Polysomnography (COMPLETED) HPI additional information: KAMI FORBES was diagnosed to have severe, AHI 49.1, obstructive sleep apnea- hypopnea syndrome and returned today for CPAP therapy two month follow-up. Sleep Study - Results Type of Sleep Study: Polysomnography (COMPLETED) Prior sleep studies: No CPAP Compliance Data - Data Reviewed with Patient Average duration of nightly device use: 1 HRS 1MIN Compliance rate %: 0 (07/29/23-09/26/23; 3/60 days used) Current pressure setting (cmH2O): 5-8 Average residual AHI: 0.7 Average large leak: 14.4 L/min Subjective Missed days of use due to: reports: travel, other (job related, not at home) Patient concerns: denies: aerophagia, mask discomfort, air blowing in eyes, mask leak noise, condensation in mask/hose, nasal congestion, dry mouth, nose, throat, epistaxis Observed to snore while using device: No Current pressure setting perceived as: comfortable On therapy, patient: reports: sleeping better, awakening more refreshed, being more awake and alert during the day, more rested overall. denies: drowsiness while driving Initial [place] Sleepiness Scale score: 7 (08/14/22) Current [place] Sleepiness Scale score: 6 Allergies and Home Medications Known drug allergies: No Drug allergies reviewed: Yes Home medication list reviewed: Yes (no changes) Allergy and home medication list: Allergies No Known Drug Allergies Allergy (Verified 08/07/23 16:34) Review of Systems Review of systems same as previous: Yes (no changes) Physical Exam Vital signs obtained and entered by: Destinee Medrano NP Blood Pressure: 141/83 Cuff size: wrist (right) Heart Rate: 76 O2 Saturation: 97 Height: 5 ft 10 in Weight: 254 lb 6.4 oz Body Mass Index: 36.5 BMI Classification: Obese Impression and Plan 1. Obstructive Sleep Apnea-Hypopnea Syndrome, severe, with poor treatment compliance and good apnea control. On CPAP therapy, the patient has better sleep quality and is more rested overall. Patient states he has to travel for his current job and they sent him to [place]. He states he did not know he was going To stay and did not bring his CPAP. He has not been using his CPAP much because he has been away for work. He states he has put in his 2 weeks because he wants to get a more local job so that he can regularly use his CPAP. He does not want a repeat of his heart attack from stress on his heart and wants to use his CPAP nightly because he notices the difference it makes. I will have him return in 1 to 2 months to see how he is doing with using his CPAP. Patient's apnea severity and rationale for treatment to reduce apnea, improve sleep quality and reduce cardiovascular and cerebrovascular events was reviewed. I also reviewed the benefit of consistent device use of CPAP for hypertension, cardiac disease, pre-diabetes. 2. Obesity, unspecified. Currently patients BMI is 36.5. Obesity increases the risk of apnea, CPAP pressure requirements and overall health risks especially cardiovascular and diabetes. Thus patient is advised to lose weight. * Continue auto CPAP pressure at 5-8 cmH2O * Notify me if snoring with mask or feeling that the pressure is too much or too little * Attempt to lose weight * Call this office if any problems using CPAP * Return for follow up in 1-2 months, or sooner if concerns arise Counseling Topics: Spare mask, Weight loss health impact Follow up with Sleep Care in: 1-2 months Visit Type: In Office Time Spent with Patient (minutes): 19 Provider Statement: I spent 100% of the Face to Face Visit with the patient with greater than 50% spent counseling the patient and coordination of care.
[2023-10-07 16:59] VITALS: BP 141/83; O2SAT 97
== END 2023-10-07 16:27 | disposition home or self-care (01) ==
LOC: SC 16:26
PROVIDERS: ATTEND Nurse Practitioner Family
DX: G47.33 Obstructive sleep apnea (adult) (pediatric) (principal); E66.9 Obesity, unspecified; Z68.36 Body mass index [BMI] 36.0-36.9, adult
CPT/HCPCS: 99212

== ENCOUNTER 2023-10-15 15:13 | Emergency (ER) | payer MEDICAID ==
--- NOTE | 2023-10-15 15:37 | ED Physician Documentation ---
PD HPI CHEST PAIN - Stated complaint Stated Complaint: IRREGULAR EKG - Chief complaint Chief Complaint: Cardiac - History obtained from History obtained from: Patient - Additional information Additional information: He has hx "AK" per him but sounds more like fluid overload, cause unclear from his hx. Never had angiogram. This was late Apr 2022. Quit smoking then. Early this morning developed pain under left breast while reaching overhead. Still worse with expansion chest wall. No soa. No edema. PD PAST MEDICAL HISTORY - Past Medical History Past Medical History: Yes Cardiovascular: Hypertension, High cholesterol, [place] Respiratory: None Neuro: None Endocrine/Autoimmune: None GI: None : Kidney stones HEENT: None Psych: None Musculoskeletal: None Derm: None - Past Surgical History Past Surgical History: Yes - Present Medications Home Medications: Ambulatory Orders Medication Instructions Recorded Confirmed HYDROcod/ACETAM 5/325 [[place] 5/325] 1 - 2 tab PO Q6H PRN #15 tablet 05/02/22 0 08/07/23 Aspirin [Vazalore] See Rx Instructions .ROUTE .COMPLEX 08/14/22 08/07/23 Atorvastatin [Lipitor] See Rx Instructions .ROUTE .COMPLEX 08/14/22 08/07/23 Empagliflozin [Jardiance] See Rx Instructions .ROUTE .COMPLEX 08/14/22 08/07/23 Furosemide [Lasix] See Rx Instructions .ROUTE .COMPLEX 08/14/22 08/07/23 Isosorbide Mononitrate ER [Imdur] See Rx Instructions .ROUTE .COMPLEX 08/14/22 08/07/23 carvediloL [Coreg] See Rx Instructions .ROUTE .COMPLEX 08/14/22 08/07/23 allopurinoL [Allopurinol] See Rx Instructions .ROUTE .COMPLEX 08/07/23 08/07/23 - Allergies Allergies/Adverse Reactions: Allergies Allergy/AdvReac Type Severity Reaction Status Date / Time No Known Drug Allergies Allergy Verified 10/15/23 15:23 - Social History Does the pt smoke?: No Smoking Status: Former smoker Does the pt drink ETOH?: No Does the pt have substance abuse?: No - Immunizations Immunizations are current?: No Immunizations: TDAP >10years/unknown - POLST Patient has POLST: No PD ED PE NORMAL - Vitals Vital signs reviewed: Yes - General General: Alert and oriented X 3, No acute distress - Neck Neck: Supple, no meningeal sign, No bony TTP - Cardiac Cardiac: RRR, No murmur - Respiratory Respiratory: No respiratory distress, Clear bilaterally - Abdomen Abdomen: Non tender - Extremities Extremities: No edema, No calf tenderness / cord - Neuro Neuro: Alert and oriented X 3, Normal speech Results - Vitals Vitals: Vital Signs - 24 hr 10/15/23 10/15/23 15:16 16:24 Temperature 36.1 C L Heart Rate 78 Respiratory 16 Rate Blood Pressure 124/66 Blood Pressure 109/75 [Right] O2 Saturation 100 Oxygen O2 Source Room air - EKG (time done) 1548 EKG releavant findings:: EKG personally interpreted by author of this note. Relevant findings are: Rate: Rate (enter#) Rhythm: NSR [place]: Normal Intervals: Normal [place] QRS: Normal Ischemia: Normal ST segments - Labs Labs: Laboratory Tests 10/15/23 10/15/23 15:47 15:47 WBC 9.7 RBC 5.70 Hgb 13.8 L Hct 43.3 MCV 76.0 L MCH 24.2 L MCHC 31.9 L RDW 16.2 H Plt Count 447 MPV 8.3 Neut # (Auto) 6.6 Lymph # (Auto) 1.6 [place] # (Auto) 1.0 Eos # (Auto) 0.4 Baso # (Auto) 0.1 Absolute Nucleated RBC 0.00 Nucleated RBC % 0.0 Sodium 134 L Potassium 3.0 L Chloride 97 L Carbon Dioxide 27 Anion Gap 10.0 BUN 35 H Creatinine 1.9 H Estimated GFR (MDRD) 40 L Glucose 144 H Calcium 9.4 Total Bilirubin 0.5 AST 40 ALT 135 H Alkaline Phosphatase 121 Troponin I High Sens 11.9 Total Protein 8.2 Albumin 3.9 Globulin 4.3 H Albumin/Globulin Ratio 0.9 L Lipase 102 H - Rads (name of study) Single view chest x-ray is unremarkable Relevant Findings:: Final report received, EMP independent interpretation of test PD Medical Decision Making - ED course ED course: Lab work was notable from mild anemia. Looking like a chronic issue. CMP notable for mild hyponatremia and hypokalemia. I will give him some oral potassium. His renal function is stable with a GFR of about 40. Mild elevation in the ALT only, nonspecific. Normal/negative troponin. Overall the description of the pain is very atypical and sounding muscular. Heart score 1-2, see HPI PERC negative Needed a work note because that he thought it would hurt too much to lift at work with the pain further suggesting a muscular etiology. Departure - Departure Disposition: 01 Home, Self Care Clinical Impression: Chest pain Qualifiers: Chest pain type: unspecified Qualified Code(s): R07.9 - Chest pain, unspecified Condition: Good Record reviewed to determine appropriate education?: Yes Instructions: ED Chest Pain NonCardiac Comments: The chest pain certainly sounds like it is from the muscle, your EKG and troponin testing which are the more specific testing to see if there is been recent heart damage were both normal/negative. You do have stable decreased kidney function. Call your doctor to arrange a follow-up appointment, make the next available appointment. In the interim, return anytime if worse or if new symptoms develop. Your potassium level was mildly low and you received a dose here. Forms: PCP List, Activity restrictions
--- NOTE | 2023-10-15 15:43 | XRAY Report ---
PROCEDURE: Chest 1V INDICATIONS: Chest pain TECHNIQUE: One view of the chest was acquired. COMPARISON: 05/02/2022. FINDINGS: Surgical changes and devices: None. Lungs and pleura: No pleural effusions or pneumothorax. Lungs are clear. Mediastinum: Mediastinal contours appear normal. Heart size is normal. Bones and chest wall: No suspicious bony lesions. Overlying soft tissues appear unremarkable. IMPRESSION: No acute cardiopulmonary process. Reviewed by: Jay Melton MD on 10/15/2023 3:42 PM PDT Approved by: Jay Melton MD on 10/15/2023 3:42 PM PDT Station ID: [id number]
[2023-10-15 15:57] LABS: BASOPHILS # (AUTO) 0.1 10^3/uL (0.0-0.1); BASOPHILS % (AUTO) 0.9 %; EOSINOPHILS # (AUTO) 0.4 10^3/uL (0.0-0.7); EOSINOPHILS % (AUTO) 4.4 %; HCT - HEMATOCRIT 43.3 % (42.0-52.0); HGB - HEMOGLOBIN 13.8 g/dL (14.0-18.0); LYMPHOCYTES # (AUTO) 1.6 10^3/uL (1.5-3.5); LYMPHOCYTES % (AUTO) 16.6 %; MEAN CORPUSCULAR HEMOGLOBIN 24.2 pg (27.0-31.0); MEAN CORPUSCULAR HGB CONC 31.9 g/dL (32.0-36.0); MEAN PLATELET VOLUME 8.3 fL (7.4-11.4); MONOCYTES % (AUTO) 9.8 %; NEUTROPHILS # (AUTO) 6.6 10^3/uL (1.5-6.6); NEUTROPHILS % (AUTO) 67.7 %; PLT - PLATELET COUNT 447 10^3/uL (130-450); RED CELL DISTRIBUTION WIDTH 16.2 % (12.0-15.0); WHITE BLOOD COUNT 9.7 x10^3/uL (4.8-10.8)
[2023-10-15 16:07] LABS: ALBUMIN 3.9 g/dL (3.2-5.5); ALBUMIN/GLOBULIN RATIO 0.9 (1.0-2.2); BILIRUBIN,TOTAL 0.5 mg/dL (0.2-1.0); CALCIUM 9.4 mg/dL (8.5-10.3); CREATININE 1.9 mg/dL (0.6-1.3); TOTAL PROTEIN 8.2 g/dL (6.4-8.9)
[2023-10-15 16:14] LABS: TROPONIN I HIGH SENSITIVITY 11.9 ng/L (2.3-19.7)
[2023-10-15] MEDS: POTASSIUM BICARB 25 MEQ TABLET PO STA (16:29)
[2023-10-15 16:44] VITALS: BP 103/84; O2SAT 96
== END 2023-10-15 16:37 | disposition home or self-care (01) ==
LOC: ED 15:13
DX: R07.9 Chest pain, unspecified (principal); D64.9 Anemia, unspecified; E87.1 Hypo-osmolality and hyponatremia; E87.6 Hypokalemia; I10 Essential (primary) hypertension; I25.2 Old myocardial infarction; Z79.82 Long term (current) use of aspirin; Z79.899 Other long term (current) drug therapy; Z79.84 Long term (current) use of oral hypoglycemic drugs; Z87.891 Personal history of nicotine dependence
CPT/HCPCS: 36415; 71045; 80053; 83690; 84484; 85025; 93005; 99283; 99284; A9270